=== PATIENT | female | born 1975 ===

== ENCOUNTER 2018-02-26 12:56 | Emergency (ER) | payer OTHER ==
[~2018-02-26] VITALS: Ht 172.7 cm; Wt 81.6 kg
== END 2018-02-26 15:20 | disposition home or self-care (01) ==
LOC: ER 12:56
DX: M25.511 Pain in right shoulder (principal)

== ENCOUNTER 2018-07-03 15:00 | Outpatient (CLI) | payer OTHER | END 2018-07-03 15:04 | disposition home or self-care (01) | LOC: SONOGRAMA 15:00 | DX: N20.0 Calculus of kidney (principal) ==

== ENCOUNTER 2018-07-04 09:16 | Outpatient (CLI) | payer OTHER | END 2018-07-04 09:30 | disposition home or self-care (01) | LOC: LAB 09:16 | DX: N40.0 Benign prostatic hyperplasia without lower urinary tract symptoms (principal); E11.51 Type 2 diabetes mellitus with diabetic peripheral angiopathy without gangrene; E11.9 Type 2 diabetes mellitus without complications; E78.89 Other lipoprotein metabolism disorders; I10 Essential (primary) hypertension; M54.5 Low back pain; K62.5 Hemorrhage of anus and rectum; K64.8 Other hemorrhoids; K64.0 First degree hemorrhoids; Z12.11 Encounter for screening for malignant neoplasm of colon ==

== ENCOUNTER 2019-02-02 15:03 | Outpatient (CLI) | payer OTHER | END 2019-02-02 15:13 | disposition home or self-care (01) | LOC: RAD 15:03 | DX: N20.1 Calculus of ureter (principal) ==